=== PATIENT | female | born 1970 | race Hispanic/Latino ===

== ENCOUNTER 2019-02-27 00:15 | Emergency (ER) | payer OTHER ==
[~2019-02-27] VITALS: Ht 162.6 cm; Wt 117.9 kg
--- OUTSIDE RECORDS SUMMARY | 2019-02-27 00:16 | XMS REPORT ---
Author Author [facility] Address Unknown Phone Unavailable Care Team Providers [employer] Salesperson Name Role Phone Unavailable Unavailable Payers Payer Name Policy Type Policy Number Effective Date Expiration Date Problems This patient has no known problems. Allergies, Adverse Reactions, Alerts Allergy Name Allergy Type Status Severity Reaction(s) Onset Date Inactive Date Treating Clinician Comments No Known Allergies DA Active U 2018-10-31 00:00:00 No Known Allergies DA Active U 2017-07-23 00:00:00 Medications This patient has no known medications. Results Test Description Test Time Test Comments Text Results Atomic Results Result Comments - MRI BRAIN WO/W CONT 2018 14:04:00 FAX: Mayo Portillo NP [phone] [place]: St: ADM FAX: Venkat Sosa I [phone] Name: GUIDO PATEL DEQUAN [facility] : 1970 Age/S: 48/F [address] [place] [address] Unit #: [id number] Loc: [place] [place] [address] Phys: Mayo Portillo NP Acct: [id number] Dis Date: Status: ADM IN PHONE #: [phone] Exam Date: 2018 1335 FAX #: [phone] Reason: persistant [place] EXAMS: CPT CODE: [id number] MRI BRAIN WO/W CONT 17220 Clinical Indication: Persistent headaches. Comparison: Brain CT 12/23/2018, 01/01/2018, 11/27/2017 and 12/29/2009. TECHNIQUE: Multiplanar multisequence MR imaging of the brain was performed without and with intravenous contrast. IV CONTRAST: 24 mL Dotarem was admin istered intravenous. FINDINGS: SCALP AND CALVARIUM:No focal enhancing abnormalities. VENTRICLES AND SULCI:Normal in size and configuration for the patient's age. EXTRA-AXIAL SPACES:No abnormal enhancement, extra-axial fluid collection or mass effect. The small calcification in the right sylvian fissure is not visualized on this exam. BRAIN PARENCHYMA: No abnormal restricted diffusion or enhancement. There are a few T2 FLAIR hyperintense foci in the supratentorial white matter, which are nonspecific. There is no mass effect or midline shift. There there is no magnetic susceptibility to suggest intraparenchymal hemorrhage. CHIASM/SELLA: The optic chiasm is normal. Partially empty sella. VESSELS: The expected intracranial flow voids are present. PARANASAL SINUSES AND MASTOIDS: T2 hyperintense mucosal thickening enhancement of the ethmoid air cells, sphenoid sinuses and maxillary sinuses, without fluid level. Clear mastoid air cells. IMPRESSION: 1. No acute intracranial abnormality or abnormal intracranial enhancement. 2. Mucosal thickening enhancement of the paranasal sinuses, which may be the source of the patient's headaches. 3. The few T2 FLAIR hyperintense foci in the supratentorial white matter are nonspecific but may be secondary to mild microvascular ischemic changes or changes related to migraine headaches. PAGE 1 Signed Report (CONTINUED) FAX: Mayo Portillo NP [phone] [place]: St: [facility] FAX: Venkat Sosa I [phone] Name: GUIDO PATEL [facility] : 1970 Age/S: 48/F [address] [place] [address] Unit #: [id number] Loc: [address] [place] [address] Phys: Mayo Portillo DIRECTOR SPECIALTY Acct: [id number] Dis Date: Status: ADM IN PHONE #: [phone] Exam Date: 2018 1335 FAX #: [phone] Reason: persistant [place] EXAMS: CPT CODE: [id number] MRI BRAIN WO/W CONT 32393 <Continued> SL: [id number] at 1404 Reported and signed by: John Nolasco M.D. CC: Mayo Portillo DIRECTOR SPECIALTY; Venkat Salguero MD Technologist: RT Tiburcio(R)(MR) Trnscrd Date/Time/By: 2018 (8659) : By: [email or web address] [facility] Print D/T: S: 2018 (7432) PAGE 2 Signed Report - CT C-SPINE W/O CONT 2018 13:11:00 Name: GUIDO PATEL [facility] : 1970 Age/S: 48 / F [address] [place] [address] Unit #: [id number] Loc: [place] [address] Phys: Mayo Portillo NP Acct: [id number] Dis Date: Status: ADM IN PHONE #: [phone] Exam Date: 2018 1236 FAX #: [phone] Reason: persistant neck pain/[place] EXAMS: CPT CODE: [id number] CT C-SPINE W/O CONT 15873 PROCEDURE: CT CERVICAL SPINE WITHOUT CONTRAST INDICATION: Persistent neck pain and headache COMPARISON: 12/22/2018 cervical spine x-rays. 12/29/2009 CT cervical spine. TECHNIQUE: Noncontrast helical imaging performed skull base through the cervicothoracic junction. Multiplanar reconstructions are available. CT imaging performed at this location utilizes radiation dose optimization techniques which include one or more of the following: - Automated exposure control -Adjustment of the mA and/or kV according to patient size -Use of iterative reconstruction technique CT Radiation Dose DLP 370.70 mGy-cm FINDINGS: SKELETON: No fracture or malalignment through the cervicothoracic junction. The craniocervical junction is maintained. The atlantodental interspace is maintained. Disc space narrowing C5-6 and C6-7. Remaining disc spaces maintained. Prominent posterior osteophyte C6-7. The C6-7 osteophytes encroach upon the left foramen and to a much lesser degree the right foramen at this level. Narrowing of the bony canal see 6 7. Remaining foramina and canal widely patent. SOFT TISSUES: Survey of the intraspinal soft tissues is limited by this modality. No gross paraspinous edema. The pulmonary apices are clear. IMPRESSION: 1. Prominent osteophytes especially on the left C6-7 with moderate bony spinal canal stenosis. The appearance of this level is worsened significantly since 12/29/2009. END OF IMPRESSION [id number] PAGE 1 Signed Report (CONTINUED) Name: JORGEGUIDO MONTELONGONANDEZ [facility] : 1970 Age/S: 48 / F [address] [place] [address] Blvd Unit #: [id number] Loc: [place] [address] Phys: Mayo Portillo NP Acct: [id number] Dis Date: Status: ADM IN PHONE #: [phone] Exam Date: 2018 1236 FAX #: [phone] Reason: persistant neck pain/[place] EXAMS: CPT CODE: [id number] CT C-SPINE W/O CONT 54442 <Continued> at 1311 Reported and signed by: Shay Herron M.D. CC: Mayo Portillo DIRECTOR SPECIALTY; Venkat Salguero MD Technologist:RT Tereza(R)(CT) CTDI: DLP: Trnscb Date/Time: 2018 (1311) Bandar Orig Print D/T: S: 2018 (1635) CTDI: DLP: PAGE 2 Signed Report - CT HEAD/BRAIN W/O CONT 2018-12-23 08:15:00 Name: GUIDO PATEL [facility] [place] : 1970 Age/S: 48 / F [address] [facility] Unit #: [id number] Loc: [place] [address] Phys: Mayo Potrillo DIRECTOR SPECIALTY Acct: [id number] Dis Date: Status: ADM IN PHONE #: [phone] Exam Date: 12/23/2018 0748 FAX #: [phone] Reason: [place] EXAMS: CPT CODE: [id number] CT HEAD/BRAIN W/O CONT 88642 STUDY: - CT HEAD/BRAIN W/O CONT 12/23/2018 10:08 PM Ordering Physician: Mayo Portillo NP Patient Name: GUIDO PATEL MR: [id number] : 1970; Age: 48 years y/o Female Clinical Indication: Headache [place] Comparison: January 01, 2018 CT head TECHNIQUE: Multiple contiguous transaxial noncontrast CT images were obtained through the head. Coronal and sagittal reformatted images were prepared. DOSE: CT imaging performed at this location utilizes radiation dose optimization technique which includes one or more of the followin) Automated exposure control; 2) Adjustment of the mA and/or kV according to patient's size; 3) Use of iterative reconstruction techniques. DLP (mGy-cm): 1068 FINDINGS: BRAIN PARENCHYMA: The brain volume is appropriate for age. Punctate calcification the right medial temporal lobe No evidence of acute intracranial hemorrhage, mass lesion, mass effect, midline shift, or extra-axial fluid collection. VENTRICLES: The lateral ventricles, third ventricle, fourth ventricle, and basilar cisterns are appropriate for degree of atrophy present. PARANASAL SINUSES: Mild to moderate mucosal thickening in the maxillary ethmoid sinuses MASTOIDS: Clear. ORBITS: The visualized portions of the orbits are normal. SOFT TISSUES: No significant abnormality. SKULL: No acute fracture or suspicious osseous lesion. IMPRESSION: PAGE 1 Signed Report (CONTINUED) Name: GUIDO PATEL [facility] Ramachandran : 1970 Age/S: 48 / F [address] [facility] Unit #: [id number] Loc: [place] [address] Phys: Mayo Portillo DIRECTOR SPECIALTY Acct: [id number] Dis Date: Status: ADM IN PHONE #: [phone] Exam Date: 12/23/2018 0748 FAX #: [phone] Reason: [place] EXAMS: CPT CODE: [id number] CT HEAD/BRAIN W/O CONT 80668 <Continued> No acute intracranial abnormality. Punctate calcification the right medial temporal lobe, similar to prior exam, representing sequela of old infection/inflammatory change. SL: [id number] at 0815 Reported and signed by: Miguel Garcia M.D. CC: Mayo Portillo DIRECTOR SPECIALTY; Venkat Salguero MD Technologist:Kadie Potter RT(R)(CT) CTDI: DLP: Trnscb Date/Time: 12/23/2018 (814) [email or web address] Orig Print D/T: S: 12/23/2018 (818) CTDI: DLP: PAGE 2 Signed Report COMPREHENSIVE METABOLIC PANEL 2018-12-23 07:36:00 SODIUM (test code=NA) 140 mEq/L 134-147 POTASSIUM (test code=K) 3.1 mEq/L 3.4-5.0 CHLORIDE (test code=CL) 105 mEq/L 100-108 CARBON DIOXIDE (test code=CO2) 28 mEq/L 21-33 ANION GAP (test code=GAP) 10 0-20 GLUCOSE (test code=GLU) 124 mg/dL 70-110 BLOOD UREA NITROGEN (test code=BUN) 21 mg/dL 7-18 GLOMERULAR FILTRATION RATE (test code=GFR) 53.2 95-105 Units of measure=ml/min/1.73 m2 CREATININE (test code=CREAT) 1.1 mg/dL 0.6-1.3 TOTAL PROTEIN (test code=PROT) 6.8 g/dL 6.4-8.2 ALBUMIN (test code=ALB) 3.20 g/dL 3.4-5.0 CALCIUM (test code=CA) 8.5 mg/dL 8.0-10.5 BILIRUBIN TOTAL (test code=BILT) 0.40 mg/dL 0.0-1.0 SGOT/AST (test code=AST) 25 IUnit/L 15-37 SGPT/ALT (test code=ALT) 38 IUnit/L 15-65 ALKALINE PHOSPHATASE TOTAL (test code=ALKP) 87 IUnit/L 20-125 [id number] 07:36:00* Test Item Value Reference Range Comments TROPONIN-I (test code=TROPI) < 0.015 ng/mL 0.000-0.045 Negative: <=0.045 Positive: >=0.046 Correlation with serial results, other cardiac markers andclinical findings is necessary to determine the clinicalsignificance of this result. Results using different methodologies should not be comparedto one another as quantitative results may vary by method. CBC W/AUTO [id number] 06:54:00* Test Item Value Reference Range Comments WHITE BLOOD CELL (test code=WBC) 5.51 x10 3/uL 4.5-11.0 RED BLOOD CELL (test code=RBC) 3.91 x10 6/uL 3.54-5.02 HEMOGLOBIN (test code=HGB) 11.3 g/dL 11.0-15.0 HEMATOCRIT (test code=HCT) 36.1 % 33.0-45.0 MEAN CELL VOLUME (test code=MCV) 92.3 fL 81.0-99.0 MEAN CELL HGB (test code=MCH) 28.9 pg 27.0-33.0 MEAN CELL HGB CONCETRATION (test code=MCHC) 31.3 g/dL 33.0-37.0 RED CELL DISTRIBUTION WIDTH CV (test code=RDW) 12.6 % 11.5-14.5 RED CELL DISTRIBUTION WIDTH SD (test code=RDW-SD) 42.5 fL 37.0-54.0 PLATELET COUNT (test code=PLT) 227 x10 3/uL 150-400 MEAN PLATELET VOLUME (test code=MPV) 9.9 fL 7.0-9.0 NEUTROPHIL % (test code=NT%) 55.7 % 56.0-77.0 IMMATURE GRANULOCYTE % (test code=IG%) 0.2 % 0.0-2.0 LYMPHOCYTE % (test code=LY%) 29.8 % 14.0-32.0 MONOCYTE % (test code=MO%) 8.9 % 4.8-9.0 EOSINOPHIL % (test code=EO%) 4.9 % 0.3-3.7 BASOPHIL % (test code=BA%) 0.5 % 0.0-2.0 NUCLEATED RBC % (test code=NRBC%) 0.0 % 0-0 NEUTROPHIL # (test code=NT#) 3.07 x10 3/uL 2.0-7.6 IMMATURE GRANULOCYTE # (test code=IG#) 0.01 x10 3/uL 0.00-0.03 LYMPHOCYTE # (test code=LY#) 1.64 x10 3/uL 1.0-3.8 MONOCYTE # (test code=MO#) 0.49 x10 3/uL 0.1-0.8 EOSINOPHIL # (test code=EO#) 0.27 x10 3/uL 0.0-0.2 BASOPHIL # (test code=BA#) 0.03 x10 3/uL 0.0-0.2 NUCLEATED RBC # (test code=NRBC#) 0.00 x10 3/uL 0.0-0.1 MANUAL DIFF REQUIRED (test code=MDIFF) NO PROTHROMBIN [id number] 05:18:00* Test Item Value Reference Range Comments PROTHROMBIN TIME PATIENT (test code=PTP) 13.4 SECONDS 9.3-12.9 INTERNATIONAL NORMAL RATIO (test code=INR) 1.2 0.8-1.2 TARGET INR BY INDICATION Indication INR1. Prophylaxis of venous thrombosis 2.0 - 3.0 (orthopedic surgery), Prophylaxis of venous thrombosis (other than high-risk surgery), Treatment of Deep Vein Thrombosis/Pulmonary Embolism, Prevention of systemic embolism - Tissue heart valves, Acute Myocardial Infarction (to prevent systemic embolism), Valvular heart disease, Atrial Fibrillation, Bileaflet mechanical valve in aortic position.2. Mechanical prosthetic valves (high risk), 2.5 - 3.5 Presence of Lupus Anticoagulant or Antiphospholipid Antibodies, Prevention of systemic embolism - Acute Myocardial Infarction (to prevent recurrent infarct). [id number] 05:18:00* Test Item Value Reference Range Comments D-DIMER (test code=DDIMER) 232 ng/mlFEU <=500 THROMBOSIS AND/OR PULMONARY EMBOLISM AND THE CLINICAL CUT- OFF VALUE FOR EXCLUSION (500 ng/mL FEU) OF THESE CONDITIONSIS VALIDATED BY THE MEDICAL CODING MANAGER OF THE METHOD. A NEGATIVE D-DIMER RESULT WHEN COMBINED WITH A CLINICALASSESSMENT OF LOW PRETEST PROBABILITY HAS BEEN SHOWN TO HAVEA HIGH NEGATIVE PREDICTIVE VALUE OF DVT OR PE. D-DIMER VALUES >500 ng/mL FEU ARE NOT DIAGNOSTIC FOR DVT, PEor DIC WITHOUT OTHER CONFIRMATORY TESTS AND APPROPRIATECLINICAL EUALUATIONS. [id number] 00:52:00* Test Item Value Reference Range Comments TROPONIN-I (test code=TROPI) < 0.015 ng/mL 0.000-0.045 Negative: <=0.045 Positive: >=0.046 Correlation with serial results, other cardiac markers andclinical findings is necessary to determine the clinicalsignificance of this result. Results using different methodologies should not be comparedto one another as quantitative results may vary by method. COMMENTS: 3 troponins total (including troponin done in ED)[id number] 21:27:00* Test Item Value Reference Range Comments TROPONIN-I (test code=TROPI) < 0.015 ng/mL 0.000-0.045 Negative: <=0.045 Positive: >=0.046 Correlation with serial results, other cardiac markers andclinical findings is necessary to determine the clinicalsignificance of this result. Results using different methodologies should not be comparedto one another as quantitative results may vary by method. COMMENTS: 3 troponins total (including troponin done in ED)BASIC METABOLIC PANEL 2018-12-22 18:33:00* Test Item Value Reference Range Comments SODIUM (test code=NA) 137 mEq/L 134-147 POTASSIUM (test code=K) 4.1 mEq/L 3.4-5.0 CHLORIDE (test code=CL) 104 mEq/L 100-108 CARBON DIOXIDE (test code=CO2) 28 mEq/L 21-33 ANION GAP (test code=GAP) 9 0-20 GLUCOSE (test code=GLU) 92 mg/dL 70-110 BLOOD UREA NITROGEN (test code=BUN) 19 mg/dL 7-18 GLOMERULAR FILTRATION RATE (test code=GFR) 67.4 95-105 Units of measure=ml/min/1.73 m2 CREATININE (test code=CREAT) 0.9 mg/dL 0.6-1.3 CALCIUM (test code=CA) 9.1 mg/dL 8.0-10.5 [id number] 18:33:00* Test Item Value Reference Range Comments TROPONIN-I (test code=TROPI) < 0.015 ng/mL 0.000-0.045 Negative: <=0.045 Positive: >=0.046 Correlation with serial results, other cardiac markers andclinical findings is necessary to determine the clinicalsignificance of this result. Results using different methodologies should not be comparedto one another as quantitative results may vary by method. CBC W/AUTO [id number] 18:14:00* Test Item Value Reference Range Comments WHITE BLOOD CELL (test code=WBC) 7.41 x10 3/uL 4.5-11.0 RED BLOOD CELL (test code=RBC) 4.28 x10 6/uL 3.54-5.02 HEMOGLOBIN (test code=HGB) 12.4 g/dL 11.0-15.0 HEMATOCRIT (test code=HCT) 38.5 % 33.0-45.0 MEAN CELL VOLUME (test code=MCV) 90.0 fL 81.0-99.0 MEAN CELL HGB (test code=MCH) 29.0 pg 27.0-33.0 MEAN CELL HGB CONCETRATION (test code=MCHC) 32.2 g/dL 33.0-37.0 RED CELL DISTRIBUTION WIDTH CV (test code=RDW) 12.7 % 11.5-14.5 RED CELL DISTRIBUTION WIDTH SD (test code=RDW-SD) 41.8 fL 37.0-54.0 PLATELET COUNT (test code=PLT) 250 x10 3/uL 150-400 MEAN PLATELET VOLUME (test code=MPV) 10.2 fL 7.0-9.0 NEUTROPHIL % (test code=NT%) 62.0 % 56.0-77.0 IMMATURE GRANULOCYTE % (test code=IG%) 0.3 % 0.0-2.0 LYMPHOCYTE % (test code=LY%) 23.8 % 14.0-32.0 MONOCYTE % (test code=MO%) 8.8 % 4.8-9.0 EOSINOPHIL % (test code=EO%) 4.6 % 0.3-3.7 BASOPHIL % (test code=BA%) 0.5 % 0.0-2.0 NUCLEATED RBC % (test code=NRBC%) 0.0 % 0-0 NEUTROPHIL # (test code=NT#) 4.60 x10 3/uL 2.0-7.6 IMMATURE GRANULOCYTE # (test code=IG#) 0.02 x10 3/uL 0.00-0.03 LYMPHOCYTE # (test code=LY#) 1.76 x10 3/uL 1.0-3.8 MONOCYTE # (test code=MO#) 0.65 x10 3/uL 0.1-0.8 EOSINOPHIL # (test code=EO#) 0.34 x10 3/uL 0.0-0.2 BASOPHIL # (test code=BA#) 0.04 x10 3/uL 0.0-0.2 NUCLEATED RBC # (test code=NRBC#) 0.00 x10 3/uL 0.0-0.1 MANUAL DIFF REQUIRED (test code=MDIFF) NO - XR C-SPINE 2-3 [id number] 17:55:00 FAX: Jabier Marcos DO [phone] [place]: St: REG Name: GUIDO PELAEZ [facility] : 12/23/18 73 Age/S: 47/F [address] [place] [address] Unit #: [id number] Loc: [place] [address] Phys: Jabier Robledo DO Acct: [id number] Dis Date: Status: REG ER PHONE #: [phone] Exam Date: 12/22/2018 1724 FAX #: [phone] Reason: PAIN DENIES TRAUMA EXAMS: CPT CODE: [id number] XR C-SPINE 2-3 VIEWS 13438 PROCEDURE: CERVICAL SPINE 3 VIEWS INDICATION: Neck pain. COMPARISON: None. FINDINGS: AP, lateral and swimmer's projections were obtained. No frac ture or malalignment through the cervicothoracic junction. Disc space batsheva rowing C5-6 and C6-7. The posterior elements are intact. Oblique views n ot obtained precluding assessment of the exit foramina. The C1-2 relation ship is normal. The prevertebral soft tissues are normal. IMPRESSION: 1. Cervical spondylosis C5-6 and C6-7. If there is continued clinical concern, further imaging options would i nclude CT or MRI. SL: [id number] Elect ronically Signed by Sonal Delgado on 12/23/19 19 at 1755 Reported and signed by: Mat guzman M.D. CC: Jabier Robledo DO Technologist: Deborah Reyes, RT(R); Rowan Weir, RT(R) Trnksrd Date/Time/By: 12/22/2018 (6148) : By: DarrylL Orig Print D/T : S: 12/22/2018 (9168) PAGE 1 Sig carmen Report - XR CHEST 1 [id number] 17:36:00 FAX: Zoe Jabier Robledo DO [phone] [place]: St: REG Name: GUIDO PELAEZ [facility] : 12/23/18 73 Age/S: 47/F [address] [place] [address] Unit #: [id number] Loc: [address] [address] Phys: Jabier Robledo DO Acct: [id number] Dis Date: Status: REG ER PHONE #: [phone] Exam Date: 12/22/2018 1724 FAX #: [phone] Reason: Chest Pain EXAMS: CPT CODE: [id number] XR CHEST 1 V 94768 EXAM: Single view portable AP chest. EXAM DATE: 12/22/2018 at 1725 hours CLINICAL HIS TORY: Chest pain COMPARISON: October 31, 2018 Cardiomediastinal silhouette is within normal limits. The lungs appear free of acute disease. Visualized osseous structures demonstrate degenera tive changes in the intrathoracic spine. Impression: No evidence of acute cardiopulmonary disease. Electronically Si gned by Sonal Plascencia on 12/22/2018 at 1736 Reported and signed by: Nuris Plascencia M.D. CC: Jabier Robledo DO Technologist: RT Rajiv(R); Rowan Weir RT(R) Tr [facility] Date/Time/By: 12/22/2018 (4004) : By: Marie Orig Print D/T: S: 12/22/2018 (7455) PAGE 1 Bharti d Report - XR CHEST 1 [id number] 17:36:00 FAX: Zoe Jabier Robledo DO [phone] [place]: St: ADM Name: GUIDO PELAEZ [facility] : 12/23/18 73 Age/S: 47/F [address] [place] [address] Unit #: [id number] Loc: [place] [address] Phys: Jabier Robledo DO Acct: [id number] Dis Date: Status: ADM IN PHONE #: [phone] Exam Date: 12/22/2018 1724 FAX #: [phone] Reason: Chest Pain EXAMS: CPT CODE: [id number] XR CHEST 1 V 94710 EXAM: Single view portable AP chest. EXAM DATE: 12/22/2018 at 1725 hours CLINICAL HIS TORY: Chest pain COMPARISON: October 31, 2018 Cardiomediastinal silhouette is within normal limits. The lungs appear free of acute disease. Visualized osseous structures demonstrate degenera tive changes in the intrathoracic spine. Impression: No evidence of acute cardiopulmonary disease. Electronically Si gned by Sonal Plascencia on 12/22/2018 at 1736 Reported and signed by: Nuris Plascencia M.D. CC: Jabier Robledo DO Technologist: RT Rajiv(R); Rowan Weir RT(R) Tr [facility] Date/Time/By: 12/22/2018 (5752) : By: Marie Orig Print D/T: S: 12/22/2018 (3282) PAGE 1 Bharti wood Report - XR CHEST 2 [id number] 11:39:00 FAX: Juan Miguel Nathan [phone] [place]: St: REG Name: GUIDO PELAEZ [facility] : 12/23/18 73 Age/S: 47/F [address] [place] [address] Unit #: [id number] Loc: [place] [address] Phys: Juan Miguel Monreal Acct: [id number] Dis Date: Status: REG ER PHONE #: [phone] Exam Date: 10/31/2018 1135 FAX #: [phone] Reason: cough EXAMS: CPT CODE: [id number] XR CHEST 2 V 94625 Study: - XR CHEST 2 V 10/31/2018 10:34 AM Patient Name: GUIDO PATEL MR: [id number] : 1970; Age: 47 years y/o Female Ordering Physician: LEANA Meza ra Clinical Indication: cough Comparison: 2018 x-ray FINDINGS LUNGS: The lungs are bernard r of consolidation, pleural effusion, and pneumothorax. HEAR T AND MEDIASTINUM: Normal size heart. LINES: None. O SSEOUS STRUCTURES: Mild spinal degenerative change without fracture, dislo cation, or focal osseous lesion. OTHER: None. IMPRESSION: No acute abnormality as above discussed. SL: [id number] Electronically Sig carmen by Sonal Garcia on 10/31/2018 at 1139 Reported and signed by: Miguel Garcia M.D. CC: Juan Miguel DUEÑAS Technologist: ELLEN Gibbs RT(R) Trnscrd Date/Time/By: 10/31/2018 (4877) : By: [email or web address] Orig Print D/T: S: 10/31/2018 (7282) PAGE 1 Signed Report B-TYPE NATRIURETIC PEPTIDE 2018-10-26 09:46:00* Test Item Value Reference Range Comments B-TYPE NATRIURETIC PEPTIDE (test code=BNP) 7.8 PG/ML 0-100 HEPATIC FUNCTION [id number] 09:34:00* Test Item Value Reference Range Comments TOTAL PROTEIN (test code=PROT) 7.6 g/dL 6.4-8.2 ALBUMIN (test code=ALB) 3.40 g/dL 3.4-5.0 BILIRUBIN TOTAL (test code=BILT) 0.20 mg/dL 0.0-1.0 BILIRUBIN DIRECT (test code=BILD) < 0.10 MG/DL 0.0-0.30 BILIRUBIN INDIRECT (test code=BILIND) 0.10 MG/DL SGOT/AST (test code=AST) 18 IUnit/L 15-37 SGPT/ALT (test code=ALT) 26 IUnit/L 15-65 ALKALINE PHOSPHATASE TOTAL (test code=ALKP) 97 IUnit/L 20-125 [id number] 09:34:00* Test Item Value Reference Range Comments MAGNESIUM (test code=MAG) 2.30 mg/dL 1.8-2.4 HCG SERUM [id number] 09:34:00* Test Item Value Reference Range Comments HCG SERUM QUAL (test code=HCGQL) SERUM NEGATIVE NEGATIVE HEPATIC FUNCTION [id number] 09:27:00* Test Item Value Reference Range Comments TOTAL PROTEIN (test code=PROT) g/dL 6.4-8.2 ALBUMIN (test code=ALB) g/dL 3.4-5.0 BILIRUBIN TOTAL (test code=BILT) mg/dL 0.0-1.0 BILIRUBIN DIRECT (test code=BILD) MG/DL 0.0-0.30 SGOT/AST (test code=AST) IUnit/L 15-37 SGPT/ALT (test code=ALT) IUnit/L 15-65 ALKALINE PHOSPHATASE TOTAL (test code=ALKP) IUnit/L 20-125 [id number] 09:27:00* Test Item Value Reference Range Comments MAGNESIUM (test code=MAG) mg/dL 1.8-2.4 HCG SERUM [id number] 09:27:00* Test Item Value Reference Range Comments HCG SERUM QUAL (test code=HCGQL) SERUM NEGATIVE NEGATIVE PROTHROMBIN [id number] 09:24:00* Test Item Value Reference Range Comments PROTHROMBIN TIME PATIENT (test code=PTP) 13.4 SECONDS 9.3-12.9 INTERNATIONAL NORMAL RATIO (test code=INR) 1.2 0.8-1.2 TARGET INR BY INDICATION Indication INR1. Prophylaxis of venous thrombosis 2.0 - 3.0 (orthopedic surgery), Prophylaxis of venous thrombosis (other than high-risk surgery), Treatment of Deep Vein Thrombosis/Pulmonary Embolism, Prevention of systemic embolism - Tissue heart valves, Acute Myocardial Infarction (to prevent systemic embolism), Valvular heart disease, Atrial Fibrillation, Bileaflet mechanical valve in aortic position.2. Mechanical prosthetic valves (high risk), 2.5 - 3.5 Presence of Lupus Anticoagulant or Antiphospholipid Antibodies, Prevention of systemic embolism - Acute Myocardial Infarction (to prevent recurrent infarct). THROMBOPLASTIN TIME [id number] 09:24:00* Test Item Value Reference Range Comments THROMBOPLASTIN TIME PARTIAL (test code=PTT) 38.1 Seconds 25.0-39.5 Therapeutic Range: 61.8-83.8 Sec Effective 10/27/2013 CBC W/AUTO [id number] 09:16:00* Test Item Value Reference Range Comments WHITE BLOOD CELL (test code=WBC) 5.50 x10 3/uL 4.5-11.0 RED BLOOD CELL (test code=RBC) 4.08 x10 6/uL 3.54-5.02 HEMOGLOBIN (test code=HGB) 12.2 g/dL 11.0-15.0 HEMATOCRIT (test code=HCT) 37.9 % 33.0-45.0 MEAN CELL VOLUME (test code=MCV) 92.9 fL 81.0-99.0 MEAN CELL HGB (test code=MCH) 29.9 pg 27.0-33.0 MEAN CELL HGB CONCETRATION (test code=MCHC) 32.2 g/dL 33.0-37.0 RED CELL DISTRIBUTION WIDTH CV (test code=RDW) 12.5 % 11.5-14.5 RED CELL DISTRIBUTION WIDTH SD (test code=RDW-SD) 41.9 fL 37.0-54.0 PLATELET COUNT (test code=PLT) 239 x10 3/uL 150-400 MEAN PLATELET VOLUME (test code=MPV) 9.1 fL 7.0-9.0 NEUTROPHIL % (test code=NT%) 62.1 % 56.0-77.0 IMMATURE GRANULOCYTE % (test code=IG%) 0.5 % 0.0-2.0 LYMPHOCYTE % (test code=LY%) 26.2 % 14.0-32.0 MONOCYTE % (test code=MO%) 6.5 % 4.8-9.0 EOSINOPHIL % (test code=EO%) 4.2 % 0.3-3.7 BASOPHIL % (test code=BA%) 0.5 % 0.0-2.0 NUCLEATED RBC % (test code=NRBC%) 0.0 % 0-0 NEUTROPHIL # (test code=NT#) 3.41 x10 3/uL 2.0-7.6 IMMATURE GRANULOCYTE # (test code=IG#) 0.03 x10 3/uL 0.00-0.03 LYMPHOCYTE # (test code=LY#) 1.44 x10 3/uL 1.0-3.8 MONOCYTE # (test code=MO#) 0.36 x10 3/uL 0.1-0.8 EOSINOPHIL # (test code=EO#) 0.23 x10 3/uL 0.0-0.2 BASOPHIL # (test code=BA#) 0.03 x10 3/uL 0.0-0.2 NUCLEATED RBC # (test code=NRBC#) 0.00 x10 3/uL 0.0-0.1 MANUAL DIFF REQUIRED (test code=MDIFF) NO TROPONIN-I [id number] 09:12:00* Test Item Value Reference Range Comments TROPONIN-I RAPID (test code=TROPIRAP) 0.00 ng/mL 0.00-0.08 Performed by certified scada operator at [facility] Global Task Force with joint leadership from the EuropeanSociety of Cardiology (ESC), the [place] [employer] Foundation (ACCF), the [place] Heart Association(AHA) and the World Heart Federation (WHF) refined past criteria of myocardial infarction (UT) with a universal definition of myocardial infarction that supports the use of cTnI as a preferred biomarker for myocardial injury. The universal definition of UT, according to this taskforce, is defined as a typical rise and gradual fall ofcardiac biomarkers (preferably troponin) with at least onevalue above the 99th percentile of the upper reference limit (URL) together with evidence of myocardial ischemia with at least one of the following:* ischemic symptoms,* pathological Q waves on electrocardiogram (ECG),* ischemic ECG changes,* or imaging evidence of new loss of viable myocardium or new regional wall motion abnormality. An elevated troponin value alone is not sufficient todiagnose a myocardial infarction. Rather, the patient sclinical presentation (history, physical exam) and ECGshould be used in conjunction with troponin in thediagnostic evaluation of suspected myocardial infarction. Aserial sampling protocol is recommended to facilitate the identification of temporal changes in troponin levels characteristic of UT. - XR CHEST 2 [id number] 09:07:00 FAX: Cynthia Gutiérrez [phone] [place]: St: PRE Name: GUIDO PELAEZ [facility] : [birth year]18 73 Age/S: 47/F [address] [place] [address] Unit #: [id number] Loc: [place] [address] Phys: Cynthia Gutiérrez Acct: [id number] Dis Date: Status: PRE ER PHONE #: [phone] Exam Date: 10/26/2018900 FAX #: [phone] Reason: Chest Pain EXAMS: CPT CODE: [id number] XR CHEST 2 V [id number] EXAM: XR CHEST 2 VIEWS DATE: 10/26/2018 8:43 AM : 1970; Age: 47 years y/o Female INDICATION: Chest Pain COMPARISON: November 27, 2017 TECHNIQUE: PA and lateral chest radiographs. FINDINGS: Lines, tubes and hardware: None. Lungs and pleura: The lungs are clear. No pleural effusion. Heart and mediastinum: The heart size is normal for technique. The mediastinal contours are normal. Pulmonary vascularity is normal. IMPRESSION: No acute cardiopulmonary process. SL: [id number] at 0907 Reported and signed by: Diogo Conklin D.O. CC: Cynthia Gutiérrez Technologist: Sachin Montgomery RT(R) Trnscrd Date/Time/By: 10/26/2018 (906) : By: [email or web address] Orig Print D/T: S: 10/26/2018 (909) PAGE 1 Signed Report CHEMISTRY 8 PROFILE 2018-10-26 09:04:00* Test Item Value Reference Range Comments ISTAT-SODIUM (test code=NAP) MMOL/L 134-147 ISTAT-POTASSIUM (test code=KP) MMOL/L 3.4-5.0 ISTAT-CHLORIDE (test code=CLP) MMOL/L 100-108 ISTAT CARBON DIOXIDE (test code=ISTAT-CO2) mmol/L 21-33 ISTAT CALCIUM IONIZED (test code=ISTAT-JOON) MG/DL 1.12-1.32 ISTAT-GLUCOSE (test code=GLUP) MG/DL 70-110 ISTAT-BUN (test code=BUNP) MG/DL 7-18 BEDSIDE CREATININE (test code=CREATBED) MG/DL 0.6-1.3 GLOMERULAR FILTRATION RATE POC (test code=GFRBED) 114 ML/MIN CHEMISTRY 8 [id number] 09:04:00* Test Item Value Reference Range Comments ISTAT-SODIUM (test code=NAP) 142 MMOL/L 134-147 ISTAT-POTASSIUM (test code=KP) 4.0 MMOL/L 3.4-5.0 ISTAT-CHLORIDE (test code=CLP) 105 MMOL/L 100-108 Performed by certified scada operator at [facility] ISTAT CARBON DIOXIDE (test code=ISTAT-CO2) 26.0 mmol/L 21-33 ISTAT CALCIUM IONIZED (test code=ISTAT-JOON) 1.15 MG/DL 1.12-1.32 ISTAT-GLUCOSE (test code=GLUP) 103 MG/DL 70-110 ISTAT-BUN (test code=BUNP) 15 MG/DL 7-18 BEDSIDE CREATININE (test code=CREATBED) 0.6 MG/DL 0.6-1.3 GLOMERULAR FILTRATION RATE POC (test code=GFRBED) 114 ML/MIN
--- OUTSIDE RECORDS SUMMARY | 2019-02-27 00:17 | XMS REPORT ---
Author Organization Unknown Address [address] [place] [address] Phone [phone] Care Team Providers Care Clinical Program Consultant Name Role Phone DR. NIA MEDINA 3 [phone] Allergies Code Code System Name Reaction Severity Status Onset NKDA Medications Name Status Start Date Stop Date albuterol sulfate 2.5 mg/3 mL (0.083 %) solution for nebulization Active Not available amoxicillin 875 mg-potassium clavulanate 125 mg tablet Completed 12/11/2017 aspirin 81 mg po daily Active Not available ceftriaxone 1 gram solution for injection Take 1 g by injection route. Completed 01/12/2018 Cheratussin AC 10 mg-100 mg/5 mL oral liquid Take 10 mL twice a day by oral route for 7 days. No alcohol or driving when on this medicine Completed 01/05/2018 Depo-Medrol 80 mg/mL suspension for injection Take 80 mg by injection route. Completed 01/12/2018 dexamethasone 4 mg/mL injection solution Take 1 mL every day by injection route for 1 day. Completed 01/05/2018 doxycycline hyclate 100 mg tablet Completed 01/05/2018 Flucelvax Quad 0927-8030 (PF) 60 mcg (15 mcg x 4)/0.5 mL IM syringe Completed 01/05/2018 fluticasone 50 mcg/actuation nasal spray,suspension Active Not available Kenalog 40 mg/mL suspension for injection Take 1 mL every day by injection route for 1 day. Completed 01/05/2018 levofloxacin 500 mg tablet Active Not available loratadine 10 mg tablet Active Not available losartan 100 mg tablet Active Not available meloxicam 15 mg tablet Completed 01/05/2018 methylprednisolone 4 mg tablets in a dose pack Completed 01/05/2018 montelukast 10 mg tablet Take 1 tablet every day by oral route in the evening for 90 days. Active Not available omega 3 183.3 mg-dha 75 mg-epa 91.6 mg-fish oil 306 mg capsule Take 1 capsule every day by oral route. Active Not available prednisone 50 mg tablet Completed 01/12/2018 ProAir HFA 90 mcg/actuation aerosol inhaler Active Not available simvastatin 40 mg tablet Active Not available Symbicort 160 mcg-4.5 mcg/actuation HFA aerosol inhaler Active Not available tramadol 37.5 mg-acetaminophen 325 mg tablet Completed 01/05/2018 Notes: tylenol Problems Name Status Onset Date Source Hyperlipidemia Active 10/27/2017 Benign Essential Hypertension Active 10/27/2017 Procedures Date Name Performed by 09/29/1994 Caesarean Section Information not available 09/29/1991 Caesarean Section Information not available 09/29/1989 Caesarean Section Information not available Hemorrhoidectomy Information not available 01/12/2018 XR, Chest, 2 View [facility] [address] [address] (Work [address]) Lab Results Date Name Specimen Result Interpretation Description Value Range Status Address 11/03/2017 Culture, Urine Culture, Urine, Routine see note Final [facility]: [address] 10/29/2017 Lipid Panel, Serum Normal Cholesterol, Total 172 mg/dL <200 mg/dL Final [facility]: [address] Low HDL Cholesterol 37 mg/dL >50 mg/dL Final [facility]: [address] Normal Triglycerides 128 mg/dL <150 mg/dL Final [facility]: [address] High LDL-cholesterol 111 mg/dL (calc) Final [facility]: [address] [place] [address] Normal Chol/hdlc Ratio 4.6 (calc) <5.0 (calc) Final [facility]: [address] High Non HDL Cholesterol 135 mg/dL (calc) <130 mg/dL (calc) Final [facility]: [address] 10/29/2017 CMP, Serum or Plasma Normal Glucose 88 mg/dL 65-99 mg/dL Final [facility]: [address] Normal Urea Nitrogen (BUN) 15 mg/dL 7-25 mg/dL Final [facility]: [address] Normal Creatinine 0.70 mg/dL 0.50-1.10 mg/dL Final [facility]: 9055 [facility] eGFR Non-afr. Ivorian 105 mL/min/1.73m2 > or=60 mL/min/1.73m2 Final [facility]: 9055 [facility] Normal eGFR 121 mL/min/1.73m2 > or=60 mL/min/1.73m2 Final [facility]: [address]s [address] [place] [address] BUN/creatinine Ratio not applicable (calc) 6-22 (calc) Final [facility] 9055 [facility] Normal Sodium 138 mmol/L 135-146 mmol/L Final [facility]: [address] Car[address] Sims [address] [place] [address] Normal Potassium 4.0 mmol/L 3.5-5.3 mmol/L Final [facility]: 9055 [facility] Normal Chloride 104 mmol/L 98-110 mmol/L Final [facility]: [address] Car[address] Sims [address] [place] [address] Normal Carbon Dioxide 28 mmol/L 20-31 mmol/L Final [facility]: [address] Sims [address] [place] [address] Normal Calcium 9.0 mg/dL 8.6-10.2 mg/dL Final [facility]: 9055 [facility] Normal Protein, Total 6.9 g/dL 6.1-8.1 g/dL Final [facility]: [address]s [address] [place] [address] Normal Albumin 4.2 g/dL 3.6-5.1 g/dL Final [facility]: [address] [place] [address] Normal Globulin 2.7 g/dL (calc) 1.9-3.7 g/dL (calc) Final [facility]: 9055 [facility] Normal Albumin/globulin Ratio 1.6 (calc) 1.0-2.5 (calc) Final [facility]: 9055 [facility] Normal Bilirubin, Total 0.5 mg/dL 0.2-1.2 mg/dL Final [facility]: 9055 [facility] Normal Alkaline Phosphatase 70 U/L 33-115 U/L Final [facility]: 9055 [facility] Normal Ast 19 U/L 10-35 U/L Final [facility]: 9035 [facility] Normal Alt 20 U/L 6-29 U/L Final [facility]: 9059 [facility] 10/29/2017 Urinalysis, Complete Normal Color yellow yellow Final [facility]: 9079 [facility] ABNORMAL Appearance cloudy clear Final [facility]: 9004 [facility] Normal Specific Manly 1.016 1.001-1.035 Final [facility]: 9056 [facility] Normal Ph 6.5 5.0-8.0 Final [facility]: 9027 Carina Lewis, [place] Normal Glucose negative negative Final [facility]: 9036 Carina Sims [address] [place] [address] Normal Bilirubin negative negative Final [facility]: 9091 Carina Sims [address] [place] [address] Normal Ketones negative negative Final [facility]: 9084 Carina Sims [address] [place] [address] ABNORMAL Occult Blood 2+ negative Final [facility]: [address]005 Carina Sims [address] [place] [address] Normal Protein negative negative Final [facility]: [address] Carina Sims [address] [place] [address] Normal Nitrite negative negative Final [facility]: 9058 Carina Sims [address] [place] [address] ABNORMAL Leukocyte Esterase 3+ negative Final [facility]: 9036 Carina Sims [address] [place] [address] ABNORMAL Wbc 40-60 /hpf < or=5 /hpf Final [facility]: 9026 Carina Sims [address] [place] [address] ABNORMAL Rbc 3-10 /hpf < or=2 /hpf Final [facility]: 9045 Carina Sims [address] [place] [address] Squamous Epithelial Cells 0-5 /hpf < or=5 /hpf Final [facility]: 9095 Carina Gutierrez [address] Normal Bacteria none seen /hpf none seen /hpf Final [facility]: 9009 Carina Sims [address] [place] [address] Normal Hyaline Cast none seen /lpf none seen /lpf Final [facility]: 9077 [facility] 10/29/2017 CBC W/ Auto Diff Normal White Blood Cell Count 4.7 thousand/uL 3.8-10.8 thousand/uL Final [facility]: 9082 Carina Sims [address] [place] [address] Normal Red Blood Cell Count 4.34 million/uL 3.80-5.10 million/uL Final [facility]: [address] Normal Hemoglobin 12.5 g/dL 11.7-15.5 g/dL Final [facility]: 9055 [address]ina [address] [place] Normal Hematocrit 37.6 % 35.0-45.0 % Final [facility]: 9055 Car[address] Lewis [place] Normal Mcv 86.6 fL 80.0-100.0 fL Final [facility]: 9055 Carina Lewis [place] Normal Mch 28.8 pg 27.0-33.0 pg Final [facility]: 9055 Carina Lewis [place] Normal Mchc 33.2 g/dL 32.0-36.0 g/dL Final [facility]: 9055 Carina Lewis [place] Normal Rdw 12.5 % 11.0-15.0 % Final [facility]: [address] Normal Platelet Count 212 thousand/uL 140-400 thousand/uL Final [facility]: 9069 Carina Lewis [place] Normal Mpv 9.8 fL 7.5-12.5 fL Final [facility]: 9055 [address]ano Normal Absolute Neutrophils 2867 cells/uL 4409-8136 cells/uL Final [facility]: [address] Lewis [place] Absolute Band Neutrophils Preliminary [facility]: [address] [place] Absolute Metamyelocytes Preliminary [facility]: 9055 Car[address] Lewis, [place] Absolute Myelocytes Preliminary [facility]: 9055 Car[address] Lewis, [place] Absolute Promyelocytes Preliminary [facility]: [address]055 Car[address] Lewis, [place] Normal Absolute Lymphocytes 1321 cells/uL 850-3900 cells/uL Final [facility]: 9055 Carina Lewis [place] Normal Absolute Monocytes 353 cells/uL 200-950 cells/uL Final [facility]: 9020 Carina Lewis [place] Normal Absolute Eosinophils 141 cells/uL 15-500 cells/uL Final [facility]: 9055 Carina Lewis [place] Normal Absolute Basophils 19 cells/uL 0-200 cells/uL Final [facility]: [address], [place] Absolute Blasts Preliminary [facility]: [address], [place] Absolute Nucleated RBC Preliminary [facility]: [address], [place] Normal Neutrophils 61 % Final [facility]: [address], [place] Band Neutrophils Preliminary [facility]: [address] y [address], [place] Metamyelocytes Preliminary [facility]: [address], [place] Myelocytes Preliminary [facility]: [address], [place] Promyelocytes Preliminary [facility]: [address], [place] Normal Lymphocytes 28.1 % Final [facility]: [address], [place] Reactive Lymphocytes Preliminary [facility]: [address], [place] Normal Monocytes 7.5 % Final [facility]: [address], [place] Normal Eosinophils 3.0 % Final [facility]: [address], [place] Normal Basophils 0.4 % Final [facility]: [address], [place] Blasts Preliminary [facility]: [address], [place] Nucleated RBC Preliminary [facility]: [address], [place] Comment(s) Preliminary [facility]: [address], [place] 10/29/2017 TSH, Serum or Plasma Normal Tsh 3.42 mIU/L Final [facility]: [address], [place] 10/29/2017 Urinalysis, Dipstick No observation recorded. [facility]: 8[address] [facility] [address], [place] Rapid Flu (A+B) Type Flu a negative [place]: [address] [facility] Type Flu B negative [place]: [address] [facility] Rapid Strep Group a, Throat Strep negative [place]: [address] [facility] Past Encounters 01/12/2018 Acute Bronchitis with Bronchospasm; Allergic Rhinitis Sreekanth ALeesa Lira MD: [address] [place] [address], Ph. 01/05/2018 Chronic Sinusitis; Acute Bronchitis; Pain in Throat; Fever; Body Mass Index 40+ - Severely Obese Sreekanth Lira MD: [address] [place] [address], Ph. 12/11/2017 Pansinusitis; Seasonal Allergic Rhinitis; Cough Variant Asthma; Persistent Cough Nia Medina MD: [facility] [facility] [address], [place] [address], Ph. 11/04/2017 Acute Frontal Sinusitis; Acute Maxillary Sinusitis; Suprapubic Pain; Left Lower Quadrant Pain Nia Medina MD: [address], [facility] [address], [place] [address], Ph. 10/27/2017 Hyperlipidemia; Benign Essential Hypertension; Knee Pain; Body Mass Index 30+ - Obesity; Depression Screening Nia Medina MD: [address], [facility] [address], [place] [address], Ph. Social History Smoking Status Never Smoker Vaccine List Vaccine Type influenza, injectable, quadrivalent 10/10/2017 Plan of Care Reminders Provider Appointments None recorded. Lab None recorded. Referral None recorded. Procedures None recorded. Surgeries None recorded. Imaging None recorded. Vitals 01/12/2018 04:00PM Est Patient Height Weight Blood Pressure 5 ft 5 in 138/74 mm[Hg] 01/05/2018 11:45AM Est Patient Height Weight BMI Blood Pressure 5 ft 5 in 258 lbs 42.9 kg/m2 (1) 150/96 mm[Hg] (2) 140/96 mm[Hg] 12/11/2017 11:45AM Est Patient Height Weight BMI Blood Pressure 5 ft 5 in 252 lbs 41.9 kg/m2 160/100 mm[Hg] 11/04/2017 11:45AM Work In Same Day Height Weight BMI Blood Pressure 5 ft 5 in 249 lbs 41.4 kg/m2 120/60 mm[Hg] 10/27/2017 10:00AM New Patient Height Weight BMI Blood Pressure 5 ft 5 in 253 lbs 42.1 kg/m2 130/82 mm[Hg]
[2019-02-27 00:56] LABS: BILIRUBIN,URINE NEGATIVE (NEGATIVE); CLARITY,URINE CLOUDY (CLEAR); COLOR,URINE YELLOW (YELLOW); KETONES,URINE NEGATIVE (NEGATIVE); LEUKOCYTE ESTERASE ,URINE LARGE (NEGATIVE); NITRITE,URINE NEGATIVE (NEGATIVE); PROTEIN,URINE DIPSTICK NEGATIVE (NEGATIVE); URINE UROBILINOGEN 0.2 mg/dL (0.2 - 1)
[2019-02-27 00:57] LABS: BASOPHILS % 0.3 % (0.0-1.0); EOSINOPHILS # (AUTO) 0.2 (0.0-0.4); EOSINOPHILS % 3.8 % (0.0-6.0); HEMATOCRIT 36.3 % (34.2-44.1); HEMOGLOBIN 12.3 g/dL (12.0-16.0); MEAN CORPUSCULAR HEMOGLOBIN 29.6 pg (28-32); MEAN CORPUSCULAR HGB CONC 33.9 g/dL (31-35); MEAN CORPUSCULAR VOLUME 87.3 fL (81-99); MONOCYTES # (AUTO) 0.5 (0.2-0.8); MONOCYTES % 7.8 % (4.4-11.3); NEUTROPHILS # (AUTO) 3.5 (2.1-6.9); NEUTROPHILS % 55.8 % (38.7-80.0); PLATELET COUNT 233 x10e3/uL (140-360); RED BLOOD COUNT 4.16 x10e6/uL (3.6-5.1); RED CELL DISTRIBUTION WIDTH 13.2 % (11.7-14.4)
--- NOTE | 2019-02-27 01:08 | Diagnostic Imaging Report ---
EXAMINATION: Head CT without contrast. HISTORY:Right facial weakness. COMPARISON:None. TECHNIQUE: Multidetector axial images were obtained from the foramen magnum to the vertex without contrast. The images were reconstructed using brain and bone algorithms. Thin section brain images were reformatted into coronal and sagittal planes. Dose modulation, iterative reconstruction, and/or weight based adjustment of the mA/kV was utilized to reduce the radiation dose to as low as reasonably achievable. Intravenous contrast: None IMAGE QUALITY: Acceptable. FINDINGS: Skull/scalp: No lytic or blastic. lesions. No surgical changes. Parenchyma: Punctate dystrophic calcification in right temporal lobe without surrounding edema or mass effect represents sequelae of prior infection/inflammation or trauma. No acute hemorrhage, mass or acute major vascular territorial infarct. Arteries: No density suggestive of thrombosis. Dural sinuses: No abnormal density suggestive of thrombosis. Ventricles: No hydrocephalus or displacement. Extra-axial spaces: No abnormal density. Brain volume: Normal for age. Craniocervical junction: No mass, Chiari malformation, or basilar invagination. Sella: Partial empty sella. Paranasal/mastoid sinuses: Moderate mucosal thickening in bilateral ethmoid sinuses. IMPRESSION: No acute intracranial abnormality. Signed by: Dr. Christiana Monge M.D. on 02/27/2019 1:05 AM
[2019-02-27 01:11] LABS: WBC,URINE (MAN) >50 /HPF (0-5)
[2019-02-27 01:12] LABS: BACTERIA,URINE MANY /HPF; EPITHELIAL CELLS,URINE FEW /LPF; RENAL EPITHELIAL CELLS,URINE FEW; TRANSITIONAL EPI CELLS,URINE FEW; TRICHOMONAS,URINE MANY
[2019-02-27] MEDS ORDERED: CEFTRIAXONE SOD 1 GM/NS 50 ML 50 ML IV ONE ×2 (01:22→01:30)
[2019-02-27 01:23] LABS: BLOOD UREA NITROGEN 26 mg/dL (7-26); BUN/CREATININE RATIO 25 (6-25); CALCIUM 9.9 mg/dL (8.4-10.2); CARBON DIOXIDE 30 mmol/L (22-29); CREATINE KINASE 570 IU/L (29-168); CREATININE, SERUM 1.02 mg/dL (0.57-1.11); EST GLOMERULAR FILTRATION RATE 58 ML/MIN (60-); GLUCOSE 113 mg/dL (74-118)
[2019-02-27] MEDS ORDERED: AZITHROMYCIN 250 MG TAB ONE (01:29)
[2019-02-27] MEDS ORDERED: AZITHROMYCIN 250 MG TAB PO ONE (01:30)
[2019-02-27 01:51] LABS: CHLORIDE 100 mmol/L (98-107); POTASSIUM 3.1 mmol/L (3.5-5.1); SODIUM 140 mmol/L (136-145)
[2019-02-27 01:54] LABS: ANION GAP 13.1 mmol/L (8-16)
[2019-02-27 02:15] VITALS: BP 109/58
== END 2019-02-27 02:23 | disposition home or self-care (01) ==
LOC: ER 00:15
DX: R53.1 Weakness (principal); I95.89 Other hypotension; N30.91 Cystitis, unspecified with hematuria; A59.01 Trichomonal vulvovaginitis; E87.6 Hypokalemia; K52.9 Noninfective gastroenteritis and colitis, unspecified
CPT/HCPCS: 36415; 70450; 80048; 81001; 82550; 82553; 84484; 85025; 87086; 99284; J0696

== ENCOUNTER → 2024-07-08 | Day surgery (SDC) | payer OTHER ==
[2024-07-05 14:59] LABS: BASOPHILS % 0.3 % (0.0-1.0); EOSINOPHILS # (AUTO) 0.3 (0.0-0.4); EOSINOPHILS % 3.6 % (0.0-6.0); HEMOGLOBIN 12.7 g/dL (12.0-16.0); LYMPHOCYTES # (AUTO) 1.8 (1.0-3.2); LYMPHOCYTES % 25.2 % (18.0-39.1); MEAN CORPUSCULAR HEMOGLOBIN 29.5 pg (28-32); MEAN CORPUSCULAR HGB CONC 31.8 g/dL (31-35); MONOCYTES # (AUTO) 0.4 (0.2-0.8); MONOCYTES % 6.1 % (4.4-11.3); NEUTROPHILS # (AUTO) 4.7 (2.1-6.9); NEUTROPHILS % 64.4 % (38.7-80.0); PLATELET COUNT 235 x10e3/uL (140-360); RED CELL DISTRIBUTION WIDTH 13.1 % (11.7-14.4); WHITE BLOOD COUNT 7.22 x10e3/uL (4.8-10.8)
[~2024-07-08] MED LIST: ASPIRIN81 MG PO; CRESTOR40 MG PO; FENTANYL CITRATE/PF 100MCG/2 ML INJ ONE; HYOSCYAMINE SULFATE 0.5 MG/ML INJ ONE; LIDOCAINE HCL 2% LOCAL INJ 5 ML SDV VIAL INJ ONE; LOSARTAN POTAS100 MG PO; MAGNESIUM OXID400 MG PO; METFORMIN HCL500 MG PO; OMEGA 3 1,0001 EACH PO; OZEMPIC2 MG/0.75 SC; PROPOFOL IV EMULSION 10 MG/ML 20 ML VIAL ONE; PROPOFOL IV EMULSION 10 MG/ML 50 ML VIAL IV ONE; VIT B12 PO; VIT D PO
[2024-07-08 08:17] LABS: CALCIUM 10.2 mg/dL (8.4-10.2); CREATININE, SERUM 0.88 mg/dL (0.57-1.11)
[2024-07-08] MEDS: ONDANSETRON HCL INJ 2MG/ML 2ML 2 MG/ML VIAL ONE (09:42)
[2024-07-08] MEDS: LACTATED RINGER'S 1,000 ML ONE (09:43)
[2024-07-08 09:47] VITALS: BP 136/81; PULSE 87; RESP 17; O2SAT 97
== END | disposition home or self-care (01) ==
LOC: OR 06:30
PROVIDERS: ATTEND Internal Medicine Gastroenterology
DX: K20.90 Esophagitis, unspecified without bleeding (principal); D12.2 Benign neoplasm of ascending colon; D12.3 Benign neoplasm of transverse colon; D12.5 Benign neoplasm of sigmoid colon; K29.50 Unspecified chronic gastritis without bleeding; K21.9 Gastro-esophageal reflux disease without esophagitis; I10 Essential (primary) hypertension; I25.2 Old myocardial infarction; E78.5 Hyperlipidemia, unspecified; E11.9 Type 2 diabetes mellitus without complications; E66.01 Morbid (severe) obesity due to excess calories; F32.A Depression, unspecified; Z88.6 Allergy status to analgesic agent; Z01.810 Encounter for preprocedural cardiovascular examination; Z01.812 Encounter for preprocedural laboratory examination; Z79.84 Long term (current) use of oral hypoglycemic drugs; Z79.85 Long-term (current) use of injectable non-insulin antidiabetic drugs; Z79.82 Long term (current) use of aspirin; Z79.899 Other long term (current) drug therapy; Z68.42 Body mass index [BMI] 45.0-49.9, adult; Z86.73 Personal history of transient ischemic attack (TIA), and cerebral infarction without residual deficits
CPT/HCPCS: 36415 ×2; 43239; 43450; 45380; 45385; 80048; 85025; 93005; J2405; J2470; J3010; J7121; 45378; J1980; J2003